=== PATIENT | female | born 1950 | race Caucasian/White ===

== ENCOUNTER 2017-08-15 07:40 | Emergency (ER) | payer BC, OTHER ==
[~2017-08-15] VITALS: Ht 170.2 cm; Wt 80.5 kg
[~2017-08-15 07:40] MED LIST: ATOR10TA PO; ENAL10TA7 PO; MELO15TA2 PO
[2017-08-15 07:46] VITALS: BP 171/90; PULSE 99; RESP 16; TEMP 98.8; O2SAT 99
[2017-08-15] MEDS ORDERED: ALPR1TAB3 PO (08:29)
[2017-08-15] MEDS ORDERED: HYDR-3516 PO (08:29)
[2017-08-15] MEDS ORDERED: ENAL10TA PO (08:29)
[2017-08-15] MEDS ORDERED: ATOR20TA15 PO (08:29)
--- NOTE | 2017-08-15 08:36 | PD ---
HPI Chief Complaint: Bite or Sting Time Seen by Provider: 08:26 Travel History International Travel<30 days: No Contact w/Intl Traveler<30days: No Traveled to known affect area: No History of Present Illness HPI 66-year-old female presents to emergency department with complaint of being bitten by a stray cat to her left lower leg yesterday. Reports redness and swelling. Reports pain to the area. Unknown tetanus status. Denies fever, vomiting. Reports nausea. Has taken leftover hydrocodone for the pain. Has also tried ice, peroxide, thyme and oregano for symptom management. Rates pain 8/10. Worse with palpation, movement, ambulation. Primary care provider is [facility]. No known allergies. History of hypertension, hypercholesterolemia, anxiety. Has no other medical complaints. No other modifying factors or associated signs and symptoms. PFSH Past Medical History Arthritis: Yes (RA) Depression: Yes Cancer: Yes (SKIN) High Cholesterol: Yes Hypertension: Yes Immunizations Current: Yes : 4 Para: 2 : 2 Tubal Ligation: Yes Past Surgical History Other Surgery: Yes (SKIN CA REMOVED ) Family History Family Hypercholesterolemia: Yes Social History Alcohol Use: Yes Tobacco Use: No Substance Use: Yes Allergies-Medications (Allergen,Severity, Reaction): Coded Allergies: No Known Allergies (Unverified , 02/20/15) Reported Meds & Prescriptions Reported Meds & Active Scripts Active Tramadol (Tramadol HCl) 50 Mg Tab 50 Mg PO Q4H PRN Ibuprofen 800 Mg Tab 800 Mg PO Q6HR PRN Augmentin (Amoxicillin-Clavulanate) 875-125 Mg Tab 1 Tab PO BID 10 Days Reported Enalapril (Enalapril Maleate) 10 Mg Tab 10 Mg PO BID Atorvastatin (Atorvastatin Calcium) 20 Mg Tab 20 Mg PO HS Alprazolam 1 Mg Tab 1 Mg PO Q6H PRN Hydrocodone-Acetaminophen 5-325 mg Tab 1 Tab PO Q4H PRN Review of Systems Except as stated in HPI: all other systems reviewed are Neg Physical Exam Narrative GENERAL: Well-nourished, well-developed femur patient, in no acute distress; afebrile, nontoxic-appearing SKIN: Warm and dry. Left lower leg with multiple scabbed scratches and puncture wounds that are without drainage; there is minimal surrounding erythema and warmth to a couple of the wounds; no lymphangitis. Left lower extremity is supple nontender with 2+ pedal pulse and sensory intact. HEAD: Atraumatic. Normocephalic. EYES: Pupils equal and round. No scleral icterus. No injection or drainage. ENT: Mucosa pink and moist. Airway patent. NECK: Trachea midline. CARDIOVASCULAR: Regular rate. RESPIRATORY: No accessory muscle use. GASTROINTESTINAL: Rounded. MUSCULOSKELETAL: No obvious deformities. No clubbing. No cyanosis. No edema. NEUROLOGICAL: Awake and alert. Oriented 3. No obvious cranial nerve deficits. Motor grossly within normal limits. Normal speech. PSYCHIATRIC: Appropriate mood and affect; insight and judgment normal. Data Data Last Documented VS Vital Signs Date Time Temp Pulse Resp B/P (MAP) Pulse Ox O2 Delivery O2 Flow Rate FiO2 08/15/17 07:46 98.8 99 16 171/90 (117) 99 Orders Orders Amoxicil-Clavulanate (Augmentin) (08/15/17 08:45) Tetanus/Diphtheria Tox Adult (Tetanus/Di (08/15/17 08:45) Ibuprofen (Motrin) (08/15/17 08:45) Ed Discharge Order (08/15/17 09:13) MDM Medical Decision Making Medical Screen Exam Complete: Yes Emergency Medical Condition: Yes Medical Record Reviewed: Yes Differential Diagnosis Infected cat bite wound, cat Bite, tetanus update Narrative Course 66-year-old female with infected cat bite to the left lower leg. The cat was a stray cat. I recommended to initiate rabies vaccinations and the patient declined. Instructed patient to follow-up with [facility] or return to the emergency department if she changes her mind and would like rabies vaccinations. There is no lymphangitis. Patient is afebrile and nontoxic-appearing. She denies fever, vomiting. Tetanus updated in the ER. Augmentin, ibuprofen administered in the ER. Augmentin, ibuprofen, tramadol prescribed for home. Instructed patient to follow up with primary care provider. Patient verbalizes understanding and agreement with treatment plan. Patient is medically cleared and stable for discharge. Discussed reasons to return to the emergency department. Patient agrees with treatment plan. The patients vital signs are stable and the patient is stable for outpatient follow-up and treatment. Patient discharged home, stable and in no acute distress. Diagnosis Primary Impression: Cat bite of left lower leg with infection Qualified Codes: S81.852A - Open bite, left lower leg, initial encounter; L08.9 - Local infection of the skin and subcutaneous tissue, unspecified; W55.01XA - Bitten by cat, initial encounter Referrals: [facility] Primary Care Physician Patient Instructions: Animal Bite (ED), General Instructions Additional Instructions: Antibiotics as prescribed and complete full course Ibuprofen and/or Tylenol as directed and as needed for pain and inflammation Elevate affected extremity as needed Ice to affected area to help reduce pain and inflammation Follow-up with primary care provider Return to the emergency department immediately with worsening of symptoms Med/Other Pt SpecificInfo: Prescription(s) given Scripts Tramadol (Tramadol) 50 Mg Tab 50 MG PO Q4H Y for PAIN, #10 TAB 0 Refills Prov: Lois Lord 08/15/17 Ibuprofen (Ibuprofen) 800 Mg Tab 800 MG PO Q6HR Y for PAIN, #30 TAB 0 Refills Prov: Lois Lord 08/15/17 Amoxicillin-Clavulanate (Augmentin) 875-125 Mg Tab 1 TAB PO BID for Infection for 10 Days, #20 TAB 0 Refills Prov: Lois Lord 08/15/17 Disposition: DISCHARGE HOME Condition: Stable Lois Lord August 15, 2017 08:36
[2017-08-15] MEDS ORDERED: AMOXICILLIN/CLAVULANATE K 875 MG TAB PO ONE (08:45)
[2017-08-15] MEDS ORDERED: TRAM50TA PO (08:45)
[2017-08-15] MEDS ORDERED: IBUP1TAB7 PO (08:45)
[2017-08-15] MEDS ORDERED: TETANUS/DIPHTHERIA TOXOID ADULT 0.5 ML VIAL IM ONE (08:45)
[2017-08-15] MEDS ORDERED: IBUPROFEN 800 MG TAB PO ONE (08:45)
[2017-08-15] MEDS ORDERED: AUGM875T3 PO (08:45)
== END 2017-08-15 09:54 | disposition home or self-care (01) ==
LOC: NEPD 07:40
DX: S81.852A Open bite, left lower leg, initial encounter (principal); L08.9 Local infection of the skin and subcutaneous tissue, unspecified; M06.9 Rheumatoid arthritis, unspecified; I10 Essential (primary) hypertension; E78.00 Pure hypercholesterolemia, unspecified; F32.9 Major depressive disorder, single episode, unspecified; W55.01XA Bitten by cat, initial encounter; Z23 Encounter for immunization; Z85.828 Personal history of other malignant neoplasm of skin
CPT/HCPCS: 90471; 90714